=== PATIENT | female | born 1965 | race Caucasian/White ===

== ENCOUNTER 2017-07-13 06:45 | Day surgery (SDC) | payer BC, MEDICARE ==
[2017-07-12 09:09] VITALS: BMI 27.8
[2017-07-13 07:58] VITALS: TEMP 97.1
[2017-07-13 08:00] VITALS: BP 155/81
--- NOTE | 2017-07-13 09:30 | RAD ---
LUMBAR MYELOGRAM: Date: 07/13/17 HISTORY: Spinal stenosis. Scoliosis. Previous surgery. COMPARISON: None. EXPOSURE: 2451.1 mGy*cm^2. 1.7 minutes fluoro time. FINDINGS: 2 VIEW LUMBAR SPINE CONTRACTS REPRESENTATIVE RADIOGRAPH; There is a partially visualized left and right Prater moe. There are [id number] transpedicular sc rews at L4 and at L5. There are five lumbar-type vertebral bodies. There is Grade I retrolisthesis of L4 upon L5. Vacuum disc phenomenon at L4-L5. There is extensive bony hypertrophy in the posterior elements at L3, L4, and L5. Technically successful lumbar puncture. A total of 10 mL of Isovue-240M contrast was administered int rathecally. The patient tolerated the procedure well. No immediate or postprocedure complications. TECHNIQUE: Consent obtained to perform a lumbar puncture. Patient's back was evaluated. The L3-L4 level was deem ed appropriate. Skin was prepped and draped in the sterile fashion. 1% lidocaine, buffered with sodiu m bicarbonate, was used for local anesthesia. Under fluoroscopic guidance, a 22 gauge spinal needle w as advanced into the CSF space. Inner stylette was removed. There was prompt flow of clear CSF to the hub of the needle. A total of 10 mL of Isovue-240M contrast was administered intrathecally. The rai ent tolerated the procedure well. No immediate or postprocedure complication. IMPRESSION: Technically successful lumbar puncture for intrathecal contrast administration. Please refer to post myelogram CT for further details. POS: [facility]
--- NOTE | 2017-07-13 09:43 | CT ---
POST MYELOGRAM LUMBAR SPINE CT: Date: 07/13/17 HISTORY: Spinal stenosis. Previous surgery for scoliosis. COMPARISON: None. TECHNIQUE: Post myelogram lumbar spine CT is performed in the axial plane. Reformatted images are submitted for interpretation. FINDINGS: Visualized solid organs are unremarkable. Visualized alimentary canal is also unremarkable. Hypodensi ty in the right hemipelvis is incompletely evaluated, measuring 1.4 cm. The possibility of a right ov nabeel cyst is raised. Symmetric attenuation of the psoas muscles. Prater rods are incompletely evaluated. Bilateral transpedicular screws at L4 and L5 are noted. N o perihardware lucency. 5.8 mm of retrolisthesis of L4 upon L5. Vacuum disc phenomenon at L4-L5 is pr esent. Conus medullaris terminates at the T12-L1 disc space level. T11-T12: No significant central canal stenosis or foraminal narrowing. T12-L1: No significant central canal stenosis or foraminal narrowing. L1-L2: No significant posterior disc abnormality. No significant central canal stenosis. Foramina are patent . L2-L3: No significant posterior disc abnormality. There is posterior element hypertrophy. There is mild cent ral canal stenosis. Neural foramina patent bilaterally. L3-L4: No significant posterior disc abnormality. No significant central canal stenosis. Foramina patent. L4-L5: Posterior decompressive laminectomy changes noted. No high grade central canal stenosis. Moderate to severe right foraminal narrowing. Mild left foraminal narrowing. L5-S1: Generalized disc bulge. Disc material abuts but does not obscure either traversing S1 nerve root. Edward rowing of the thecal sac, likely due to epidural lipomatosis and ligamentum flavum thickening. Modera te bilateral foraminal narrowing. IMPRESSION: 1. Degenerative changes of lumbar spine at L4-L5 and L5-S1 as detailed above. 2. Hypodensity in the right hemipelvis, incompletely evaluated. Pelvic ultrasound is recommended. CODE T. POS: [facility]
[2017-07-13] MEDS ORDERED: FLU VACC QS2017-18 36 mo. & older 0.5 ML SYRINGE IM ONE (21:00)
== END 2017-07-13 09:25 | disposition home or self-care (01) ==
LOC: RAD 06:45 → EDSTATUS 08:00 → RAD 09:25
PROVIDERS: ATTEND Neurological Surgery
PROC: B01B1ZZ Fluoroscopy of Spinal Cord using Low Osmolar Contrast (ICD-10-PCS; principal; 2017-07-13)
DX: M48.061 Spinal stenosis, lumbar region without neurogenic claudication (principal); F17.200 Nicotine dependence, unspecified, uncomplicated; K58.9 Irritable bowel syndrome, unspecified; D64.9 Anemia, unspecified; F41.9 Anxiety disorder, unspecified; F32.9 Major depressive disorder, single episode, unspecified; Z79.899 Other long term (current) drug therapy; Z88.0 Allergy status to penicillin; Z98.1 Arthrodesis status; Z96.7 Presence of other bone and tendon implants; Z90.710 Acquired absence of both cervix and uterus; Z98.890 Other specified postprocedural states
CPT/HCPCS: 62304; 72132